=== PATIENT | female | born 2000 | race Caucasian/White ===

== ENCOUNTER 2021-05-04 08:23 | Outpatient (REF) | payer OTHER, SELFPAY ==
[2021-05-04 10:21] LABS: MANUAL DIFF FLAG NO
[2021-05-04 10:28] LABS: Basophils Percent Auto 0.4 % (0-2); Eosinophils Absolute Auto 0.3 X10*3/uL (0.0-0.4); Eosinophils Percent Auto 5.1 % (0-4); Hematocrit 41.8 % (37.0-47.0); Hemoglobin 14.2 g/dl (12.0-16.0); Imm Gran Abs Auto 0.04 X10*3/uL (0.00-0.03); Imm Gran Pct Auto 0.6 % (0.0-0.4); Lymphocytes Absolute Auto 1.9 X10*3/uL (1.2-4.9); Lymphocytes Percent Auto 27.6 % (20-40); Mean Corpuscular Hemoglobin 29.8 pg (27.0-33.0); Mean Corpuscular Volume 87.8 fL (80.0-98.0); Mean Platelet Volume 12.2 fL (9.4-12.3); Monocytes Absolute Auto 0.4 X10*3/uL (0.1-1.2); Monocytes Percent Auto 6.1 % (2-11); Neutrophils Absolute Auto 4.1 x10*3/uL (2.0-8.3); Neutrophils Percent Auto 60.2 % (45-73); Platelet Count 214 X10*3/uL (160-400); Red Blood Count 4.76 X10*6/uL (4.20-5.50); White Blood Count 6.7 X10*3/uL (4.8-10.8)
[2021-05-04 10:59] LABS: Alanine Aminotransferase 18 U/L (0-31); Anion Gap 9 (12-20); Aspartate Amino Transferase 14 U/L (5-31); Blood Urea Nitrogen 11 mg/dL (9-16); Calcium 9.6 mg/dL (8.4-10.2); Carbon Dioxide 27 mmol/L (22-29); Chloride 107 mmol/L (96-108); Cholesterol 177 mg/dL; Estimated Glomerular Filt Rate > 60; Glucose Fasting 92 mg/dL (60-99); HDL Cholesterol 42 mg/dL; LDL Cholesterol Calculated 125 mg/dl; Potassium 4.7 mmol/L (3.3-5.1); Sodium 138 mmol/L (135-145); Triglycerides 54 mg/dL
[2021-05-04 11:23] LABS: TSH reflex Free T4 1.62 uIU/mL (0.32-4.0)
== END 2021-05-04 08:24 | disposition home or self-care (01) ==
LOC: HO.10HDL 08:23
PROVIDERS: Visit Provider Internal Medicine
DX: Z00.00 Encounter for general adult medical examination without abnormal findings (principal); F32.A Depression, unspecified; F41.9 Anxiety disorder, unspecified; R00.2 Palpitations
CPT/HCPCS: 36415; 80048; 80061; 82306; 84443; 84450; 84460; 85025

== ENCOUNTER → 2021-07-18 14:15 | Outpatient (BNVA) | payer OTHER, SELFPAY | PROVIDERS: PCP Nurse Practitioner Family; Referring Provider Nurse Practitioner Family; Visit Provider Nurse Practitioner Family | DX: R06.02 Shortness of breath (principal); R53.83 Other fatigue | CPT/HCPCS: 93005 ==

== ENCOUNTER 2021-07-20 16:48 | Outpatient (REF) | payer OTHER, SELFPAY ==
[2021-07-20 17:26] LABS: MANUAL DIFF FLAG NO
[2021-07-20 17:47] LABS: Basophils Absolute Auto 0.1 X10*3/uL (0.0-0.2); Basophils Percent Auto 0.9 % (0-2); Eosinophils Absolute Auto 0.6 X10*3/uL (0.0-0.4); Hematocrit 41.7 % (37.0-47.0); Imm Gran Abs Auto 0.03 X10*3/uL (0.00-0.03); Imm Gran Pct Auto 0.4 % (0.0-0.4); Lymphocytes Absolute Auto 2.4 X10*3/uL (1.2-4.9); Lymphocytes Percent Auto 30.5 % (20-40); Mean Corpuscular HGB Conc 33.6 g/dl (31.0-35.0); Mean Corpuscular Hemoglobin 29.9 pg (27.0-33.0); Mean Corpuscular Volume 89.1 fL (80.0-98.0); Mean Platelet Volume 11.1 fL (9.4-12.3); Monocytes Absolute Auto 0.5 X10*3/uL (0.1-1.2); Monocytes Percent Auto 6.5 % (2-11); Neutrophils Absolute Auto 4.4 x10*3/uL (2.0-8.3); Neutrophils Percent Auto 54.7 % (45-73); Platelet Count 246 X10*3/uL (160-400); Red Blood Count 4.68 X10*6/uL (4.20-5.50); Red Cell Distribution Width 12.1 % (11.0-16.0)
[2021-07-20 18:08] LABS: Alanine Aminotransferase 33 U/L (0-31); Albumin Level 4.5 g/dL (3.5-5.0); Alkaline Phosphatase 59 U/L (39-117); Anion Gap 14 (12-20); Aspartate Amino Transferase 21 U/L (5-31); Bilirubin Total 0.6 mg/dL (0.0-1.0); Blood Urea Nitrogen 13 mg/dL (9-16); Calcium 9.7 mg/dL (8.4-10.2); Carbon Dioxide 26 mmol/L (22-29); Chloride 102 mmol/L (96-108); Estimated Glomerular Filt Rate > 60; Glucose Random 83 mg/dL (60-115); Potassium 3.8 mmol/L (3.3-5.1); Sodium 138 mmol/L (135-145); Total Protein 7.3 g/dL (6.5-8.0)
[2021-07-20 18:25] LABS: Erythrocyte Sedimentation Rate 7 MM/HR (0-20)
[2021-07-21 09:20] LABS: Thyroglobulin Antibodies <1 IU/mL (< or = 1); Thyroid Peroxidase Antibodies <1 IU/mL (<9)
[2021-07-21 13:32] LABS: Complement C3 103 mg/dL (83-193)
[2021-07-21 19:21] LABS: Immunoglobulin E 135 kU/L (<OR=114)
[2021-07-24 11:57] LABS: IgA 212 mg/dL (47-310); IgG 950 mg/dL (600-1640); IgM 79 mg/dL (50-300)
[2021-07-26 23:41] LABS: Histamine Release <16 % (<16); TSH 2.19 mIU/L (0.40-4.50); Thyroglobulin Abs <1 IU/mL (< OR = 1)
== END 2021-07-20 16:49 | disposition home or self-care (01) ==
LOC: HO.LAB 16:48
PROVIDERS: PCP Nurse Practitioner Family; Visit Provider Allergy & Immunology
DX: L50.9 Urticaria, unspecified (principal)
CPT/HCPCS: 36415; 80053; 82784; 82785; 83520; 84443; 85025; 85652; 86160; 86334; 86343; 86376; 86800

== ENCOUNTER → 2021-07-27 08:03 | Outpatient (REF) | payer OTHER, SELFPAY ==
--- NOTE | 2021-07-27 08:07 | CA_ITS ---
Acquisition Time: 2021-07-27 08:20:29 Total Exercise Time: 00:07:45 Test Indications: CP, SOB Medications: SEE CHART Protocol: GERARD Max HR: 181 BPM 90% of Pred: 200 BPM Max BP: 152/050 mmHG Max Work Load: 9.7 METS Exercise stress test with exercise 7 min 45 sec of Gerard protocol, with report of mild shortness of breath, no chest discomfort, without arrythmia, with normotensive response to exercise, without EKG changes meeting criteria for ischemia. Her reports of sob started in stage 1 and degree of sob did not increase throughout remainder of exercise. Test reviewed with Dr Huizar. Referred By: Janell Benjamin Overread By: JANELL BENJAMIN
== END ==
LOC: HO.CARD 08:03
PROVIDERS: PCP Internal Medicine; Visit Provider Nurse Practitioner Family
DX: R06.02 Shortness of breath (principal)
CPT/HCPCS: 93017

== ENCOUNTER 2021-08-25 07:42 | Outpatient (REF) | payer OTHER, SELFPAY ==
--- NOTE | 2021-08-25 13:18 | PFT_ITS ---
INDICATION: Shortness of breath. SPIROMETRY: FEV1 to FVC of 92% with an FEV1 of 3.71 L, which is 103% predicted and an FVC of 4.05 L, which is 97% predicted. No significant response to bronchodilators noted. Maximum voluntary ventilation 85% predicted. LUNG VOLUMES: Total lung capacity 94% predicted with an expiratory reserve volume of 91% predicted. DIFFUSION CAPACITY: DLCO is 91% predicted. Flow volume loop appears to have good lung mechanics during both the expiratory and the expiratory phase without any evidence of any dynamic obstruction. A little bit of fasciculation during the inspiratory phase bringing up the question of vocal cord dysfunction. INTERPRETATION: No obstructive nor restrictive ventilatory defects have been identified. No significant response to bronchodilators noted. Normal lung volumes and normal diffusion capacity. If asthma is in the differential, methacholine challenge may be helpful in assessing for hyper-reactive airways. Otherwise, clinical diagnosis is warranted. MD HOOD Marrero/ORTIZ / [id number]
== END 2021-08-25 07:43 | disposition home or self-care (01) ==
LOC: HO.RESP 07:42
PROVIDERS: PCP Nurse Practitioner Family; Visit Provider Nurse Practitioner Family
DX: J30.2 Other seasonal allergic rhinitis (principal); R06.02 Shortness of breath; R53.83 Other fatigue
CPT/HCPCS: 94060; 94727; 94729

== ENCOUNTER 2021-12-02 22:42 | Emergency (ER) | payer OTHER, SELFPAY ==
[2021-12-02 22:45] VITALS: BP 130/83; PULSE 87; RESP 14; TEMP 36.8; O2SAT 98
[2021-12-03 00:09] LABS: Imm Gran Abs Auto 0.06 X10*3/uL (0.00-0.03); Imm Gran Pct Auto 0.6 % (0.0-0.4); MANUAL DIFF FLAG SCAN; Monocytes Absolute Auto 0.6 X10*3/uL (0.1-1.2); PLT CLUMP 1; SCAN SMEAR FLAG 1
[2021-12-03 00:11] LABS: Basophils Absolute Auto 0.1 X10*3/uL (0.0-0.2); Basophils Percent Auto 0.5 % (0-2); Eosinophils Absolute Auto 0.9 X10*3/uL (0.0-0.4); Eosinophils Percent Auto 8.6 % (0-4); Hematocrit 43.2 % (37.0-47.0); Hemoglobin 14.8 g/dl (12.0-16.0); Lymphocytes Absolute Auto 2.3 X10*3/uL (1.2-4.9); Lymphocytes Percent Auto 23.1 % (20-40); Mean Corpuscular HGB Conc 34.3 g/dl (31.0-35.0); Mean Corpuscular Hemoglobin 29.8 pg (27.0-33.0); Mean Corpuscular Volume 87.1 fL (80.0-98.0); Mean Platelet Volume 11.3 fL (9.4-12.3); Monocytes Percent Auto 6.3 % (2-11); Neutrophils Percent Auto 60.9 % (45-73); Red Blood Count 4.96 X10*6/uL (4.20-5.50); Red Cell Distribution Width 11.9 % (11.0-16.0); White Blood Count 9.9 X10*3/uL (4.8-10.8)
[2021-12-03 00:24] LABS: Alanine Aminotransferase 32 U/L (0-31); Lipase 13 U/L (8-78)
[2021-12-03 00:26] LABS: Albumin Level 4.5 g/dL (3.5-5.0); Alkaline Phosphatase 63 U/L (39-117); Anion Gap 14 (12-20); Aspartate Amino Transferase 27 U/L (5-31); Bilirubin Direct 0.2 mg/dL (0.0-0.5); Bilirubin Total 0.5 mg/dL (0.0-1.0); Blood Urea Nitrogen 14 mg/dL (9-16); Calcium 9.6 mg/dL (8.4-10.2); Carbon Dioxide 27 mmol/L (22-29); Chloride 104 mmol/L (96-108); Creatinine Clr Calc Pharmacy 109.6; Estimated Glomerular Filt Rate > 60; Glucose Random 93 mg/dL (60-115); Potassium 4.1 mmol/L (3.3-5.1); Sodium 141 mmol/L (135-145); Total Protein 7.4 g/dL (6.5-8.0)
[2021-12-03 00:29] LABS: Platelet Count 197 X10*3/uL (160-400)
[2021-12-03 00:30] LABS: SLIDE REVIEW VERIFIED
== END 2021-12-03 03:03 | disposition left against medical advice (07) ==
PROVIDERS: Emergency Medicine Emergency Medical Services; Emergency Provider Emergency Medicine
DX: R10.9 Unspecified abdominal pain (principal)
CPT/HCPCS: 36415; 80053; 82248; 83690; 85025; 99281; 99283

== ENCOUNTER 2021-12-20 09:18 | Outpatient (REF) | payer OTHER, SELFPAY ==
[2021-12-22 13:40] LABS: H Pylori Breath Test Negative (Negative)
== END 2021-12-20 09:19 | disposition home or self-care (01) ==
LOC: HO.LNP 09:18
PROVIDERS: PCP Internal Medicine; Visit Provider Physician Assistant
DX: R10.9 Unspecified abdominal pain (principal); K21.9 Gastro-esophageal reflux disease without esophagitis; A04.8 Other specified bacterial intestinal infections; Z79.899 Other long term (current) drug therapy
CPT/HCPCS: 83013; 99202; 99212

== ENCOUNTER 2022-05-11 15:22 | Outpatient (REF) | payer OTHER, SELFPAY ==
--- NOTE | ~2022-05-11 | US_ITS ---
EXAMINATION: US THYROID CLINICAL INFORMATION: Nontoxic goiter, unspecified. COMPARISON: None TECHNIQUE: Linear transducer grayscale and color Doppler examination with attention to the region of the thyroid. FINDINGS: SIZE: Measurements of the thyroid lobes and nodules are given in sagittal, anteroposterior and transverse dimensions respectively. Right Thyroid Lobe: 4.72 x 1.19 x 1.10 cm, volume 3.23 mL. Parenchyma: The gland echotexture is homogeneous. Thyroid vascularity is normal. Left Thyroid Lobe: 4.92 x 1.08 x 1.93 cm, volume 5.38 mL. Parenchyma: The gland echotexture is homogeneous. Thyroid vascularity is normal. Isthmus: 0.20 cm in maximum AP dimension. Estimated total number of nodules greater than or equal to 1 cm: 0. Estate Planning Attorney nodules are described as follows: 1. Location: Right mid. Size: 0.35 x 0.30 x 0.30 cm, volume 0.02 mL. Nodule characteristics: Composition: Solid (2). Echogenicity: Hypoechoic (2). Shape: Not taller than wide (0). Margins: Smooth (0). Echogenic Foci: None (0). ACR TI-RADS total points: 4 ACR TI-RADS category: 4 NODES: No lymphadenopathy is seen in the tissue surrounding the thyroid gland. US/US thyroid IMPRESSION: 3 mm hypoechoic solid nodule in the right mid thyroid. Per TI-RADS criteria, no imaging follow-up recommended. ACR TI-RADS RECOMMENDATION REFERENCE: * TR4 (4-6 points): FNA if more than or equal to 1.5 cm in maximum dimension, followup ultrasound in 1, 2, 3 and 5 years if 1 to 1.4 cm in maximum dimension. * TR3, TR4 or TR5 nodules that are below the size threshold for followup receive no follow up.
== END 2022-05-11 15:23 | disposition home or self-care (01) ==
LOC: HO.HMGCX 15:22
PROVIDERS: PCP Internal Medicine; Visit Provider Internal Medicine
DX: E04.9 Nontoxic goiter, unspecified (principal)
CPT/HCPCS: 76536

== ENCOUNTER → 2022-08-07 08:22 | Outpatient (BNVA) | payer OTHER, SELFPAY | PROVIDERS: PCP Internal Medicine; Visit Provider Physician Assistant | DX: R10.9 Unspecified abdominal pain (principal); R19.8 Other specified symptoms and signs involving the digestive system and abdomen; G89.29 Other chronic pain | CPT/HCPCS: 99212 ==

== ENCOUNTER 2022-11-22 11:07 | Outpatient (AMB) | payer OTHER, SELFPAY ==
--- NOTE | 2022-11-22 11:08 | MHC.OFFWIV ---
Intake Vital Signs 11/22/22 11:10 Height 5 ft 7 in BP 102/60 Blood Pressure Location Lt brachial Position Sitting Pulse 72 Pulse Source Pulse Oximeter Temp 95.6 F L Temp Source Temporal Artery Scan Pulse Oximetry (%) 99 Oxygen Delivery Method Room Air Intake Visit Reasons: EP spot on throat, doesn't hurt(lobby) Intake Note: Pt is here c/o having something on her throat. Pt states she feels like something is stuck in her throat. Pt denies sore throat, cough, fevers. Patient Tobacco Use Status: Never used Tobacco Allergies cetirizine Allergy (Severe, Verified 11/22/22 11:09) Hives fexofenadine [From Amber] Allergy (Severe, Verified 11/22/22 11:09) Hives prednisone Allergy (Severe, Verified 11/22/22 11:09) Hives amoxicillin Allergy (Unknown, Verified 11/22/22 11:09) rash hydroxyzine Allergy (Verified 11/22/22 11:09) hives loratadine Allergy (Verified 11/22/22 11:09) hives Do you need a note to return to daycare/school/sports/work: No HPI HPI Comments History of Present Illness Details 22-year-old female no relevant history the presents for spot her throat. Patient has is she noted a white spot the left side of her throat. She denies any pain but notices sensation when swallowing denies any fevers chills other systemic signs. [facility] Medical History Abdominal pain Chronic urticaria Encounter to establish care Fatigue Paroxysmal sinus tachycardia Seasonal allergic rhinitis Shortness of breath Thyroid enlarged Vitamin D deficiency Surgical History History of wisdom tooth extraction Family History Father Drug addiction Mental illness in member of household IHSS (idiopathic hypertrophic subaortic stenosis) Mother Fibromyalgia Mental health disorder Maternal Grandfather Diabetes mellitus Colon cancer Maternal Grandmother Kidney disease Substance use disorder Cardiac arrest Paternal Grandfather IHSS (idiopathic hypertrophic subaortic stenosis) Sister No problems noted. Sister No problems noted. Social History Household Members Other:: Single Housing: House Alcohol intake: never Patient Tobacco Use Status: Never used Tobacco e-Cigarette/Vaping Use: Never Used service: No Current occupational status: employed Current occupation: [employer] also Cognitive needs: No Hearing needs: No Vision needs: Yes (Glasses) Review of Systems Const All systems reviewed & are unremarkable except as noted in HPI and below Denies fever(s) and Denies weakness Eyes Reports no additional complaints ENT Details: White spot in the back of the throat. Card Reports no additional complaints, Denies chest pain, Denies leg edema and Denies dyspnea Resp Denies cough and Denies dyspnea GI Denies abdominal pain, Denies nausea and Denies vomiting Denies urinary frequency and Denies dysuria Musc Reports no additional complaints Neuro Denies weakness Psych Reports no additional complaints Endo Reports no additional complaints Physical Exam Vital Signs: Last Vital Signs Temp 95.6 F L 11/22/22 11:10 Pulse 72 11/22/22 11:10 BP 102/60 11/22/22 11:10 Pulse Ox 99 11/22/22 11:10 Oxygen Delivery Method Room Air 11/22/22 11:10 Const General: cooperative, healthy appearing, comfortable, no acute distress, alert and awake HEENT Other: White spot on the left tonsil. No erythema in the posterior pharynx. No trismus no uvular deviation or muffled voice. Assessment & Plan Assessment & Plan (1) Tonsillith: Code(s): J35.8 - Other chronic diseases of tonsils and adenoids Plan 22-year-old female no relevant history the presents for spot her throat VSS. On exam patient's insulin oriented no acute distress. Exam is notable for white round structure lodged within the left tonsil. No erythema in the posterior pharynx no trismus uvula deviation or muffled voice. Patient's sinus symptoms consistent with a tonsillith. Advised patient she may utilize lozenges saltwater rinses or try manually expressing the stone. If she develops any signs symptoms of infection such as fever she should represent for further evaluation. Discharge instructions, follow up and treatment are discussed with patient in my usual fashion. Alternatives in treatment are also discussed. The patient will return for worsening symptoms or as needed. Advised that any labs/imaging ordered will be followed up on and contact made if further treatment needed. Counseled that patient's condition may require further evaluation and/or treatment. Symptoms of concern for worsening disorder discussed in detail in my customary manner. Patient does verbalize understanding of the plan, there are no apparent barriers to communication. The patient is given the opportunity to ask questions and have them answered to his/her satisfaction Patient Instructions: Your seen and evaluated in the walk-in clinic for your in evaluation. And your medical evaluation revealed a tonsillith or tonsil stone in your left tonsil. This might cause pain in the future may utilize saltwater rinses or lozenges or try manually expressing the stone. Developing new worsening symptoms such as fever sore throat or difficulty swelling or any concerns with this please re-presented for further evaluation. Coding Level of Care Code Est Pt Level 3 (56417) Diagnoses Tonsillith J35.8
[2022-11-22 11:10] VITALS: BP 102/60; PULSE 72; TEMP 35.3; O2SAT 99
== END 2022-11-22 11:26 | disposition home or self-care (01) ==
PROVIDERS: PCP Internal Medicine; Visit Provider Physician Assistant
DX: J35.8 Other chronic diseases of tonsils and adenoids (principal)
CPT/HCPCS: 99213

== ENCOUNTER 2022-12-04 08:19 | Outpatient (AMB) | payer OTHER, SELFPAY ==
--- NOTE | 2022-12-04 09:31 | MHC.OFFWIV ---
Intake Vital Signs 12/04/22 09:35 Height 5 ft 7 in BP 120/74 Blood Pressure Location Lt brachial Position Sitting Pulse 70 Pulse Source Pulse Oximeter Temp 97.2 F Temp Source Temporal Artery Scan Pulse Oximetry (%) 98 Oxygen Delivery Method Room Air Intake Visit Reasons: EP Cough, Intake Note: Pt is here c/o still having a bad cough since last week. Pt states she was seen in the walk in last week and had tonsil stones. Patient Tobacco Use Status: Never used Tobacco Allergies cetirizine Allergy (Severe, Verified 12/04/22 09:52) Hives fexofenadine [From Amber] Allergy (Severe, Verified 12/04/22 09:52) Hives prednisone Allergy (Severe, Verified 12/04/22 09:52) Hives amoxicillin Allergy (Unknown, Verified 12/04/22 09:52) rash hydroxyzine Allergy (Verified 12/04/22 09:52) hives loratadine Allergy (Verified 12/04/22 09:52) hives Medication List - Last Reconciled 12/04/22 by Zane Mendoza MD diclofenac sodium 1% (Arthritis Pain (diclofenac)) 2 grams topical QID PRN epinephrine (EpiPen) 0.3 mg (0.3 mL) IM Q4H PRN 1 day levonorgestrel (Liletta) intrauterine Do you need a note to return to daycare/school/sports/work: Yes HPI EP Cough, HPI Details 22-year-old female presents to the office for a sick visit. Patient is complaining of an irritating cough the past few days. Green to yellow productive sputum. Coughing episodes are paroxysmal and occasionally cause nausea. No fevers or chills. [facility] Medical History Abdominal pain Chronic urticaria Encounter to establish care Fatigue Paroxysmal sinus tachycardia Seasonal allergic rhinitis Shortness of breath Thyroid enlarged Vitamin D deficiency Surgical History History of wisdom tooth extraction Family History Father Drug addiction Mental illness in member of household IHSS (idiopathic hypertrophic subaortic stenosis) Mother Fibromyalgia Mental health disorder Maternal Grandfather Diabetes mellitus Colon cancer Maternal Grandmother Kidney disease Substance use disorder Cardiac arrest Paternal Grandfather IHSS (idiopathic hypertrophic subaortic stenosis) Sister No problems noted. Sister No problems noted. Social History Household Members Other:: Single Housing: House Alcohol intake: never Patient Tobacco Use Status: Never used Tobacco e-Cigarette/Vaping Use: Never Used service: No Current occupational status: employed Current occupation: [employer] also Cognitive needs: No Hearing needs: No Vision needs: Yes (Glasses) Physical Exam Vital Signs: Last Vital Signs Temp 97.2 F 12/04/22 09:35 Pulse 70 12/04/22 09:35 BP 120/74 12/04/22 09:35 Pulse Ox 98 12/04/22 09:35 Oxygen Delivery Method Room Air 12/04/22 09:35 Const General: cooperative and healthy appearing Nutritional Appearance: well nourished Orientation/consciousness: patient oriented x3 Limitations: no limitations HEENT Head: Yes normal to inspection Eyes General: appearance normal, both eyes and all related structures Neck Neck: Yes normal visual inspection Chest Chest palpation & inspection: normal palpation of entire chest wall Resp Effort & Inspection: normal respiratory effort Neuro General: patient oriented x3 Assessment & Plan Assessment & Plan (1) Upper respiratory tract infection: Code(s): J06.9 - Acute upper respiratory infection, unspecified Plan: Antibiotics ordered. Increase fluid intake. Tylenol for aches and pains. If symptoms worsen, follow-up here for a recheck. Coding Level of Care Code Est Pt Level 3 (82875) Diagnoses Upper respiratory tract infection J06.9
[2022-12-04 09:35] VITALS: BP 120/74; PULSE 70; TEMP 36.2; O2SAT 98
== END 2022-12-04 09:49 | disposition home or self-care (01) ==
PROVIDERS: PCP Internal Medicine; Visit Provider Internal Medicine
DX: J06.9 Acute upper respiratory infection, unspecified (principal)
CPT/HCPCS: 99213

== ENCOUNTER 2023-09-14 09:02 | Outpatient (REF) | payer OTHER, SELFPAY ==
[2023-09-14 11:25] LABS: Basophils Absolute Auto 0.1 X10*3/uL (0.0-0.2); Basophils Percent Auto 0.8 % (0-2); Eosinophils Absolute Auto 0.3 X10*3/uL (0.0-0.4); Eosinophils Percent Auto 4.2 % (0-4); Hematocrit 41.5 % (37.0-47.0); Hemoglobin 14.1 g/dl (12.0-16.0); Imm Gran Abs Auto 0.01 X10*3/uL (0.00-0.03); Imm Gran Pct Auto 0.2 % (0.0-0.4); Lymphocytes Absolute Auto 1.9 X10*3/uL (1.2-4.9); Lymphocytes Percent Auto 30.1 % (20-40); MANUAL DIFF FLAG NO; Mean Corpuscular Hemoglobin 30.3 pg (27.0-33.0); Mean Corpuscular Volume 89.2 fL (80.0-98.0); Mean Platelet Volume 12.2 fL (9.4-12.3); Monocytes Absolute Auto 0.4 X10*3/uL (0.1-1.2); Monocytes Percent Auto 6.3 % (2-11); Neutrophils Absolute Auto 3.7 x10*3/uL (2.0-8.3); Neutrophils Percent Auto 58.4 % (45-73); Platelet Count 211 X10*3/uL (160-400); Red Blood Count 4.65 X10*6/uL (4.20-5.50); Red Cell Distribution Width 12.4 % (11.0-16.0); White Blood Count 6.4 X10*3/uL (4.8-10.8)
[2023-09-14 12:05] LABS: Alanine Aminotransferase 16 U/L (0-31); Albumin Level 4.2 g/dL (3.5-5.0); Alkaline Phosphatase 57 U/L (39-117); Anion Gap 15 (12-20); Aspartate Amino Transferase 16 U/L (5-31); Bilirubin Total 0.4 mg/dL (0.0-1.0); Blood Urea Nitrogen 10 mg/dL (9-16); Calcium 9.2 mg/dL (8.4-10.2); Carbon Dioxide 23 mmol/L (22-29); Chloride 108 mmol/L (96-108); Cholesterol 173 mg/dL (<200); Estimated Glomerular Filt Rate > 60; Glucose Random 92 mg/dL (60-115); HDL Cholesterol 45 mg/dL (>40); LDL Cholesterol Calculated 121 mg/dL (<100); Potassium 4.4 mmol/L (3.3-5.1); Sodium 142 mmol/L (135-145); Total Protein 6.9 g/dL (6.5-8.0); Triglycerides 39 mg/dL (<150)
[2023-09-14 12:25] LABS: Thyroid Stimulating Hormone 0.76 uIU/mL (0.32-4.0); Vitamin D 25-OH Total 30.5 ng/mL (>30)
[2023-09-14 12:35] LABS: Folate 11.4 ng/mL (> or = 4.0); Vitamin B12 357 pg/mL (200-900)
== END 2023-09-14 09:03 | disposition home or self-care (01) ==
LOC: HO.HMGCLDS 09:02
PROVIDERS: PCP Internal Medicine; Visit Provider Internal Medicine
DX: K21.9 Gastro-esophageal reflux disease without esophagitis (principal); E78.00 Pure hypercholesterolemia, unspecified
CPT/HCPCS: 36415; 80053; 80061; 82306; 82607; 82746; 84439; 84443; 85025

== ENCOUNTER 2023-09-16 11:23 | Outpatient (AMB) | payer OTHER, SELFPAY ==
[2023-09-16 11:24] VITALS: BP 126/78; PULSE 74; O2SAT 100; BMI 32.4
--- NOTE | 2023-09-16 11:24 | A.OFFPC_ITS ---
Vital Signs 09/16/23 11:24 Height 5 ft 7 in Weight 93.908 kg BMI 32.4 BP 126/78 Blood Pressure Location Lt brachial Position Sitting Pulse 74 Pulse Source Pulse Oximeter Pulse Oximetry (%) 100 Oxygen Delivery Method Room Air Intake Visit Reasons: Annual Intake Note: Patient is here today for a physical. Final Cigar And Box Examiner Required: No Allergies cetirizine Allergy (Severe, Verified 09/16/23 11:29) Hives fexofenadine [From Amber] Allergy (Severe, Verified 09/16/23 11:29) Hives prednisone Allergy (Severe, Verified 09/16/23 11:29) Hives amoxicillin Allergy (Unknown, Verified 09/16/23 11:29) rash hydroxyzine Allergy (Verified 09/16/23 11:29) hives loratadine Allergy (Verified 09/16/23 11:29) hives Medication List - Last Reconciled 09/16/23 by Juan Jose Young MD epinephrine (EpiPen) 0.3 mg (0.3 mL) IM Q4H PRN 1 day levonorgestrel (Liletta) intrauterine Tobacco use date assessed: 09/16/23 Dental Screening Dental Screen Date: 09/16/23 Did you have a dental visit in the last 12 months?: Yes Did you have a dental problem in the last 6 months where you did not have access to dental care?: No Was dental information given to patient?: Patient has dentist HPI Annual HPI Details 22-year-old obese female with a history of thyroid nodule, GERD and chronic urticaria coming in for physical exam. Last seen in April 2022. Review of the notes has seen gastroenterology for abdominal pain patient was advised EGD and colonoscopy. But this was not seen in the record. [facility] Medical History Abdominal pain Chronic urticaria Encounter to establish care Fatigue Paroxysmal sinus tachycardia Seasonal allergic rhinitis Shortness of breath Thyroid enlarged Vitamin D deficiency Surgical History History of wisdom tooth extraction Family History Father Drug addiction Mental illness in member of household IHSS (idiopathic hypertrophic subaortic stenosis) Mother Fibromyalgia Mental health disorder Maternal Grandfather Diabetes mellitus Colon cancer Maternal Grandmother Kidney disease Substance use disorder Cardiac arrest Paternal Grandfather IHSS (idiopathic hypertrophic subaortic stenosis) Sister No problems noted. Sister No problems noted. Social History (Updated 09/16/23 @ 11:49 by Juan Jose Young MD) Household Members Other:: Single Housing: House Alcohol intake: current Comment: 2x a month 1-2 glasses Patient Tobacco Use Status: Never used Tobacco e-Cigarette/Vaping Use: Never Used service: No Current occupational status: employed Current occupation: [employer] also Cognitive needs: No Hearing needs: No Vision needs: Yes (Glasses) Questionnaire PHQ-9 Over the last 2 weeks, how often have you been bothered by any of the following problems? 1. Little interest or pleasure in doing things: not at all 2. Feeling down, depressed, or hopeless: not at all 3. Trouble falling or staying asleep, or sleeping too much: not at all 4. Feeling tired or having little energy: not at all 5. Poor appetite or overeating: not at all 6. Feeling bad about yourself - or that you are a failure or have let yourself or your family down: not at all 7. Trouble concentrating on things, such as reading the newspaper or watching television: not at all 8. Moving or speaking so slowly that other people could have noticed. Or the opposite - being so fidgety or restless that you have been moving around a lot more than usual: not at all 9. Thoughts that you would be better off or of hurting yourself in some way: not at all Total score: 0 Depression Screening Interpretation: Negative Depression Screening Done: Yes Source: Developed by Drs. Huang Velasco, Milly Chisholm, Seth Watson and colleagues, with an educational mary from [employer]. Thrive Questionnaire Date Thrive assessed: 09/16/23 I am a: Patient What is your living situation today?: I have a steady place to live Within the past 12 months, did the food you bought not last and you didn't have the money to get more?: Never true Within the past 12 months, did you worry whether your food would run out before you got money to buy more?: Never true Currently or been in a relationship where the following occur: no concerns reported THRIVE Score: 0 AUDIT C Alcohol Use Questionnaire (AUDIT-C) 1. How often do you have a drink containing alcohol?: Never 3. How often do you have six or more drinks on one occasion?: Never Total Score: 0 CHANELLE-7 AMB Questionnaire CHANELLE-7 Date CHANELLE - 7 assessed: 09/16/23 Feeling nervous, anxious, or on edge: 0 = Not at all Not being able to stop or control worryin = Not at all Worrying too much about different things: 0 = Not at all Trouble relaxin = Not at all Being so restless that it is hard to sit still: 0 = Not at all Becoming easily annoyed or irritable: 0 = Not at all Feeling afraid as if something awful might happen: 0 = Not at all Total CHANELLE-7 score (0-4 normal; 5-9 mild; 10-14 moderate; 15-21 severe): 0 Source: Developed by Drs. Huang Velasco, Milly Chisholm, Seth Watson and colleagues, with an educational mary from [employer]. CHANELLE-7 Assessment Billing CHANELLE-7 Assessment Tool: CHANELLE-7 Assessment 11625 Review of Systems Const Denies poor appetite and Denies weakness Eyes Denies no additional complaints ENT Reports Normal hearing present, Denies dizziness, Denies nasal congestion, Denies tinnitus and Denies sore throat Card Denies chest pain, Denies syncope, Denies rapid heart rate and Denies dyspnea Resp Denies cough and Denies dyspnea GI Denies change in stool character, Reports constipation, Denies diarrhea, Denies nausea and Denies vomiting Denies urinary frequency, Denies difficulty voiding and Denies dysuria Neuro Reports Normal hearing present, Denies confusion, Denies dizziness, Denies syncope and Denies weakness Psych Denies confusion Physical exam (Primary Care) Vital Signs: Last Vital Signs Pulse 74 09/16/23 11:24 BP 126/78 09/16/23 11:24 Pulse Ox 100 09/16/23 11:24 Oxygen Delivery Method Room Air 09/16/23 11:24 BMI result Body Mass Index 32.4 Tobacco/Smoking Status: Tobacco use Status Tobacco use date assessed 09/16/23 09/16/23 11:27 Patient Tobacco Use Status Never used Tobacco 09/16/23 11:49 e-Cigarette/Vaping Use Never Used 09/16/23 11:49 PHQ-9: PHQ-9 Score PHQ-9: Total score 0 09/16/23 11:43 Depression Screening Interpretation: Negative Thrive Assessment: Date of Thrive Assessment Date Thrive assessed 09/16/23 09/16/23 11:27 Currently or been in a relationship where the following occur: no concerns reported Const General: No confusion Orientation/consciousness: No confusion HENMT Head: Yes normocephalic Ears: external ears normal and TM's normal bilaterally Face and sinus: Yes normal facial exam Mouth: moist mucous membranes Throat: Yes tonsils normal Eyes Conjunctivae: conjunctivae normal Pupils: Equal, round and reactive pupils present and Pupil accommodation reflex normal Direct Ophthalmoscopy: normal light reflex Neck Neck: No lymphadenopathy Thyroid: Thyroid normal Chest Chest palpation & inspection: normal inspection of the chest Resp Effort & Inspection: normal respiratory effort and no audible wheezes Auscultation: clear to auscultation bilaterally, no crackles, no wheezes and lung sounds not diminished Cardio Rate: regular rate Rhythm: regular rhythm Peripheral pulses: radial pulses present and dorsalis pedis present GI Palpation (GI): no masses Auscultation: normal bowel sounds and normoactive bowel sounds Rectal Exam - Female: deferred Skin General skin exam: no rashes or lesions noted Rashes: no rashes Neuro General: No confusion Cranial nerves: Yes Equal, round and reactive pupils present and Yes Normal hearing present Cognition (Neuro): normal cognition Gait exam (Neuro): Normal gait present Motor exam (neuro): 5/5 motor strength present throughout Deep tendon reflexes (DTR's): Right brachioradialis reflex intensity grade: 2+, Left brachioradialis reflex intensity grade: 2+, Right patellar reflex intensity grade: 2+ and Left patellar reflex intensity grade: 2+ Extrem General: No edema Immunizations Boostrix Tdap 2.5 Lf unit-8 mcg-5 Lf/0.5 mL intramuscular syringe Performing Provider: Juan Jose Young MD Performing Location: [facility] [place] [facility] Administered by: Eliz Guzman CMA on 09/16/23 12:05 Dose Route Admin Location Dispensed Lot Number Expiration Date NDC Stull Hewer 0.5 mL IM Left Deltoid 0.5 mL [id number] 09/26/25 86875-225-80 [employer] VIS Given Date VIS Provided VIS Publication Date 09/16/23 Single Vaccine 20 Eligibility Eligibility Date Funding Source Not [facility] Eligible 09/16/23 Private Assessment and Plan Assessment & Plan (1) Annual physical exam: Code(s): Z00.00 - Encounter for general adult medical examination without abnormal findings (2) GERD (gastroesophageal reflux disease): Code(s): K21.9 - Gastro-esophageal reflux disease without esophagitis Plan: Avoid the foods that causes that usually spicy foods, tomato products, juices, coffee, soda and foods that your sensitive to. After eating do not lie down, allow 3-4 hours before in lie down. And keep the head of bed above 30 degrees to avoid the acid from going up. (3) Obesity (BMI 30.0-34.9): Code(s): E66.9 - Obesity, unspecified Plan: Diet and exercise Orders: Orders Cortisol Random Today E66.9 - Obesity, unspecified TDaP Immunization Today Z23 - Encounter for immunization Medications: New Boostrix Tdap (diphth,pertus(acell),tetanus) 0.5 mL IM ONCE 0.5 mL 0RF NS Z23 - Encounter for immunization Coding Level of Care Code Est Pt Prev Care 18-39y(50229) Diagnoses Annual physical exam Z00.00 GERD (gastroesophageal reflux disease) K21.9 Obesity (BMI 30.0-34.9) E66.9 Additional Codes CHANELLE-7 Assessment Billing - CHANELLE-7 Assessment Tool: CHANELLE-7 Assessment 56340 ([id number])
== END 2023-09-16 12:15 | disposition home or self-care (01) ==
PROVIDERS: PCP Internal Medicine; Visit Provider Internal Medicine
DX: Z00.00 Encounter for general adult medical examination without abnormal findings (principal); Z68.32 Body mass index [BMI] 32.0-32.9, adult; E66.9 Obesity, unspecified; Z23 Encounter for immunization; K21.9 Gastro-esophageal reflux disease without esophagitis
CPT/HCPCS: 90471; 90715; 99395

== ENCOUNTER 2023-09-16 12:42 | Outpatient (REF) | payer OTHER, SELFPAY ==
[2023-09-16 17:25] LABS: Cortisol Random 6.7 ug/dL
== END 2023-09-16 12:43 | disposition home or self-care (01) ==
LOC: HO.HMGCLDS 12:42
PROVIDERS: PCP Internal Medicine; Visit Provider Internal Medicine
DX: E66.9 Obesity, unspecified (principal)
CPT/HCPCS: 36415; 82533

== ENCOUNTER → 2023-11-21 14:10 | Outpatient (AMB) | payer OTHER, SELFPAY ==
--- NOTE | 2023-11-21 14:17 | AM.OFFWIN_ITS ---
Intake Vital Signs 11/21/23 14:18 Height 5 ft 7 in Weight 208 lb BMI 32.6 BP 128/80 Blood Pressure Location Lt brachial Position Sitting Pulse 93 Pulse Source Pulse Oximeter Temp Source Oral Pulse Oximetry (%) 98 Oxygen Delivery Method Room Air Intake Visit Reasons: est/dizzy and chest pains Intake Note: pt is here c/o dizziness and chest pain. Started yesterday Patient Tobacco Use Status: Never used Tobacco Allergies cetirizine Allergy (Severe, Verified 11/21/23 14:17) Hives fexofenadine [From Amber] Allergy (Severe, Verified 11/21/23 14:17) Hives prednisone Allergy (Severe, Verified 11/21/23 14:17) Hives amoxicillin Allergy (Unknown, Verified 11/21/23 14:17) rash hydroxyzine Allergy (Verified 11/21/23 14:17) hives loratadine Allergy (Verified 11/21/23 14:17) hives Do you need a note to return to daycare/school/sports/work: No HPI HPI Comments History of Present Illness Details Patient is a 23-year-old female complaining of dizziness for the last few days. [place] [facility] [place] [facility] [place] [facility] then [facility] back. She states it was her 1st time flying and she was very anxious about flying. She states she started having episodes of dizziness since the 1st fly that happen with and without movement, she denies any nausea or vomiting. She states she has a long history of anxiety and a history of her heart rate being elevated because of it. She has had a thorough cardiac workup including a 30 day Holter monitor, an echocardiogram and EKGs. She states she does not have any chest pain right now. She denies any leg swelling or leg pain, she denies a personal or family history of blood clots, DVTs or PEs. She states she would like to see a therapist but she does not want to see somebody who is going to try to help her work through all of her issues because she can usually convinced herself that it is in her head, but she would prefer someone who can just listened to her talk and she can ?get all her problems offer test? so she is not sure if regular therapy as for her and she also states her PCP was hesitant to prescribe an SSRI because he did not want her to gain weight because he knows that is a concern of hers. [facility] Medical History Abdominal pain Chronic urticaria Encounter to establish care Fatigue Paroxysmal sinus tachycardia Seasonal allergic rhinitis Shortness of breath Thyroid enlarged Vitamin D deficiency Surgical History History of wisdom tooth extraction Family History Father Drug addiction Mental illness in member of household IHSS (idiopathic hypertrophic subaortic stenosis) Mother Fibromyalgia Mental health disorder Maternal Grandfather Diabetes mellitus Colon cancer Maternal Grandmother Kidney disease Substance use disorder Cardiac arrest Paternal Grandfather IHSS (idiopathic hypertrophic subaortic stenosis) Sister No problems noted. Sister No problems noted. Social History (Updated 09/16/23 @ 11:49 by Juan Jose Young MD) Household Members Other:: Single Housing: House Alcohol intake: current Comment: 2x a month 1-2 glasses Patient Tobacco Use Status: Never used Tobacco e-Cigarette/Vaping Use: Never Used service: No Current occupational status: employed Current occupation: [employer] also Cognitive needs: No Hearing needs: No Vision needs: Yes (Glasses) Review of Systems Const All systems reviewed & are unremarkable except as noted in HPI and below Physical Exam Vital Signs: Last Vital Signs Pulse 93 11/21/23 14:18 BP 128/80 11/21/23 14:18 Pulse Ox 98 11/21/23 14:18 Oxygen Delivery Method Room Air 11/21/23 14:18 BMI result Body Mass Index 32.6 Const Other: Patient is teary at times General: cooperative, healthy appearing, comfortable and well developed Orientation/consciousness: patient oriented x3 Limitations: no limitations HEENT Head: Yes normal to inspection, Yes normocephalic and Yes atraumatic Ears: hearing grossly normal bilaterally, external ears normal and TM's normal bilaterally General nose exam: Normal external nose present Face and sinus: Yes normal facial exam Mouth: Normal oral and palatal mucosa present Throat: Yes tonsils normal, Yes uvula midline and Yes posterior oropharynx abnormal (Erythematous) Eyes General: appearance normal, both eyes and all related structures Neck Neck: Yes normal visual inspection and Yes full ROM Resp Effort & Inspection: normal respiratory effort and able to speak in complete sentences Auscultation: clear to auscultation bilaterally Cardio Rate: regular rate Rhythm: regular rhythm Heart sounds: normal S1 and S2 GI Inspection: Yes normal to inspection Palpation (GI): Soft to palpation and nontender Skin General skin exam: no rashes or lesions noted Neuro General: patient oriented x3 Extrem General: Yes normal to inspection Assessment & Plan Assessment & Plan (1) BPPV (benign paroxysmal positional vertigo): Code(s): H81.10 - Benign paroxysmal vertigo, unspecified ear Qualifiers: Laterality: unspecified laterality Qualified Code(s): H81.10 - Benign paroxysmal vertigo, unspecified ear Plan: Vital signs are stable, EKG is normal sinus rhythm 81 BPM, no acute changes. PERC'd out, no concern for PE. As patient is allergic to prednisone and allergy medications, recommended she take Benadryl around the clock for the next couple of days to try to dry up the fluid in her head which is likely caused the stones in her had to shift. Also told her how to do the Gaviota maneuver and recommended she do this at home with somebody present. We will also send note to PCP about possibly starting her on a SSRI and therapy, I did have Sandy our community health workers sit and talk with the patient to figure out what kind of therapy would be best for her. Plan See above Coding Level of Care Code Est Pt Level 4 (64088) Diagnoses Benign paroxysmal positional vertigo, unspecified laterality H81.10 Laterality: unspecified laterality
[2023-11-21 14:18] VITALS: BP 128/80; PULSE 93; O2SAT 98; BMI 32.6
== END ==
PROVIDERS: PCP Internal Medicine; Visit Provider Physician Assistant
DX: H81.10 Benign paroxysmal vertigo, unspecified ear (principal)
CPT/HCPCS: 99214

== ENCOUNTER 2024-09-22 08:52 | Outpatient (REF) | payer OTHER, SELFPAY ==
--- OUTSIDE RECORDS SUMMARY | 2024-09-22 09:16 | XMS_ITS | Encounter Summary ---
Author Organization [facility] Address [address] [place] [id number] Phone Care Team Providers Care Bottle Blower Name Role Phone Unavailable Primary Care Provider Unavailabl e Encounter Details Date Type Department Care Team (Late st Contact Info) Description 09/16/2009 Documentation [facility] [place] Family Medicine [facility] [place] [address] Family Medicine, Physician [facility] [place] [address] Social History Tobacco Use Types Packs/Day Years Used Date Smoking Tobacco: Never Assessed Comments Unknown Sex and Gender Information Value Date Recorded Sex Assigned at Not on file Legal Sex Female 4:56 PM EDT Gender Identity Not on file Sexual Orientation Not on file documented as of this encounter Plan of Treatment Not on file documented as of this encounter Visit Diagnoses Not on filedocumented in this encounter
[2024-09-22 10:07] LABS: MANUAL DIFF FLAG NO
[2024-09-22 10:14] LABS: Appearance Urine Cloudy; Color Urine Yellow; Glucose Urine UA Negative (Negative); Leukocyte Esterase Urine Moderate (2+) (Negative); Nitrite Urine Positive (Negative); Specific Gravity - Urine 1.015 (1.005-1.025); UMIC TRIGGER UACC YES; Urine Blood Negative (Negative); Urine Ketones Negative (Negative); Urine Protein Negative (Neg-Trace)
[2024-09-22 10:15] LABS: Basophils Absolute Auto 0.1 X10*3/uL (0.0-0.2); Basophils Percent Auto 0.9 % (0-2); Eosinophils Absolute Auto 0.4 X10*3/uL (0.0-0.4); Eosinophils Percent Auto 4.8 % (0-4); Hematocrit 39.6 % (37.0-47.0); Hemoglobin 13.8 g/dl (12.0-16.0); Imm Gran Abs Auto 0.04 X10*3/uL (0.00-0.03); Imm Gran Pct Auto 0.5 % (0.0-0.4); Lymphocytes Absolute Auto 2.1 X10*3/uL (1.2-4.9); Lymphocytes Percent Auto 26.3 % (20-40); Mean Corpuscular HGB Conc 34.8 g/dl (31.0-35.0); Mean Corpuscular Hemoglobin 30.3 pg (27.0-33.0); Mean Corpuscular Volume 86.8 fL (80.0-98.0); Mean Platelet Volume 11.8 fL (9.4-12.3); Monocytes Absolute Auto 0.4 X10*3/uL (0.1-1.2); Monocytes Percent Auto 5.4 % (2-11); Neutrophils Percent Auto 62.1 % (45-73); Platelet Count 199 X10*3/uL (160-400); Red Blood Count 4.56 X10*6/uL (4.20-5.50); Red Cell Distribution Width 12.1 % (11.0-16.0)
[2024-09-22 10:20] LABS: Bacteria Urine 4+ (None Seen); Hyaline Casts Urine 0-2 /LPF (0-2); RBC Urine 0-2 /HPF (0-2); UACC Culture Trigger YES; WBC Urine 21-50 /HPF (0-5)
[2024-09-22 11:05] LABS: Alanine Aminotransferase 24 U/L (0-31); Albumin Level 4.2 g/dL (3.5-5.0); Alkaline Phosphatase 50 U/L (39-117); Anion Gap 11 (12-20); Aspartate Amino Transferase 17 U/L (5-31); Bilirubin Total 0.3 mg/dL (0.0-1.0); Blood Urea Nitrogen 11 mg/dL (9-16); Calcium 9.2 mg/dL (8.4-10.2); Carbon Dioxide 25 mmol/L (22-29); Chloride 109 mmol/L (96-108); Cholesterol 202 mg/dL (<200); Estimated Glomerular Filt Rate > 60; Free T4 (Free Thyroxine) 0.86 ng/dL (0.71-1.85); Glucose Random 100 mg/dL (60-115); HDL Cholesterol 43 mg/dL (>40); LDL Cholesterol Calculated 144 mg/dL (<100); Sodium 141 mmol/L (135-145); Thyroid Stimulating Hormone 1.03 uIU/mL (0.32-4.0); Total Protein 6.7 g/dL (6.5-8.0); Triglycerides 75 mg/dL (<150); Vitamin D 25-OH Total 30.2 ng/mL (>30)
[2024-09-22 11:09] LABS: Folate 12.4 ng/mL (> or = 4.0); Vitamin B12 493 pg/mL (200-900)
== END 2024-09-22 08:53 | disposition home or self-care (01) ==
LOC: HO.HMGCLDS 08:52
PROVIDERS: PCP Internal Medicine; Visit Provider Internal Medicine
DX: K21.9 Gastro-esophageal reflux disease without esophagitis (principal); E78.00 Pure hypercholesterolemia, unspecified; R30.0 Dysuria
CPT/HCPCS: 36415; 80053; 80061; 81001; 82306; 82607; 82746; 84439; 84443; 85025; 87086; 87088; 87186

== ENCOUNTER 2024-10-23 14:47 | Outpatient (AMB) | payer OTHER, SELFPAY ==
--- NOTE | 2024-10-23 14:47 | A.OFFPC_ITS ---
Intake Visit Reasons: Lab results Intake Note: Patient is here to follow up on Lab results. Dishwasher Preparer Required: No Software Team Leader: Not Required per policy Accompanied by: Self / Same As Patient Allergies cetirizine Allergy (Severe, Verified 10/23/24 15:37) Hives fexofenadine (From Amber) Allergy (Severe, Verified 10/23/24 15:37) Hives prednisone Allergy (Severe, Verified 10/23/24 15:37) Hives amoxicillin Allergy (Unknown, Verified 10/23/24 15:37) rash hydroxyzine Allergy (Verified 10/23/24 15:37) hives loratadine Allergy (Verified 10/23/24 15:37) hives Medication List - Last Reconciled 10/23/24 by Janice Ochoa PA-C epinephrine (EpiPen) 0.3 mg (0.3 mL) IM Q4H PRN 1 day hydroxyzine HCl 10 mg PO TID PRN sertraline 75 mg PO DAILY Tobacco use date assessed: 09/16/23 Dental Screening Dental Screen Date: 10/23/24 Did you have a dental visit in the last 12 months?: Yes Did you have a dental problem in the last 6 months where you did not have access to dental care?: No Was dental information given to patient?: Patient has dentist HPI Lab results HPI Details 24-year-old female with past medical his tory of GERD, vitamin-D deficiency, chronic abdominal pain and BPPV last seen 08/2023 presenting via telehealth for lab results. Patient has no accute concerns today. [facility] Medical History Thyroid enlarged Abdominal pain Fatigue Shortness of breath Encounter to establish care Chronic urticaria Vitamin D deficiency Seasonal allergic rhinitis Paroxysmal sinus tachycardia Surgical History History of wisdom tooth extraction Family History Father Drug addiction Mental illness in member of household IHSS (idiopathic hypertrophic subaortic stenosis) Mother Fibromyalgia Mental health disorder Maternal Grandfather Diabetes mellitus Colon cancer Maternal Grandmother Kidney disease Substance use disorder Cardiac arrest Paternal Grandfather IHSS (idiopathic hypertrophic subaortic stenosis) Sister No problems noted. Sister No problems noted. Social History Household Members Other:: Single Housing: House Alcohol intake: current Comment: 2x a month 1-2 glasses Patient Tobacco Use Status: Never used Tobacco e-Cigarette/Vaping Use: Never Used Second Hand Smoke Exposure: No service: No Current occupational status: employed Current occupation: Dentist [employer] Cognitive needs: No Hearing needs: No Vision needs: Yes (Glasses) Questionnaire PHQ-9 Over the last 2 weeks, how often have you been bothered by any of the following problems? 1. Little interest or pleasure in doing things: several days 2. Feeling down, depressed, or hopeless: several days 3. Trouble falling or staying asleep, or sleeping too much: several days 4. Feeling tired or having little energy: more than half the days 5. Poor appetite or overeating: several days 6. Feeling bad about yourself - or that you are a failure or have let yourself or your family down: several days 7. Trouble concentrating on things, such as reading the newspaper or watching television: not at all 8. Moving or speaking so slowly that other people could have noticed. Or the opposite - being so fidgety or restless that you have been moving around a lot more than usual: not at all 9. Thoughts that you would be better off or of hurting yourself in some way: not at all Total score: 7 Depression Screening Interpretation: Positive Depression Screening Follow-up: Existing condition and In treatment Depression Screening Done: Yes 59413 - PHQ-9 Billing: Yes Source: Developed by Drs. Huang Velasco, Milly Chisholm, Seth Watson and colleagues, with an educational mary from [employer]. Thrive Questionnaire Date Thrive assessed: 10/23/24 I am a: Patient What is your living situation today?: I have a steady place to live Within the past 12 months, did the food you bought not last and you didn't have the money to get more?: Never true Within the past 12 months, did you worry whether your food would run out before you got money to buy more?: Never true Do you have trouble paying for medicines?: No Do you have trouble getting transportation to medical appointments?: No Do you have trouble paying your heating and electricity bill?: No Do you have trouble taking care of your child, family member or friend?: No Do you have trouble with day-to-day activities such as bathing, preparing meals, shopping, managing finances, etc.?: No Are you currently unemployed and looking for a job?: No Are you interested in more education?: No Please select the resources that you would like help with: None Currently or been in a relationship where the following occur: No concerns repor carlito THRIVE Score: 0 AUDIT C Alcohol Use Questionnaire (AUDIT-C) 2. How many drinks containing alcohol do you have on a typical day when you are drinking?: 1 or 2 3. How often do you have six or more drinks on one occasion?: Less than monthly Total Score: 1 CHANELLE-7 AMB Questionnaire CHANELLE-7 Date CHANELLE - 7 assessed: 10/23/24 Feeling nervous, anxious, or on edge: 2 = More than half the days Not being able to stop or control worryin = More than half the days Worrying too much about different things: 2 = More than half the days Trouble relaxin = Several days Being so restless that it is hard to sit still: 0 = Not at all Becoming easily annoyed or irritable: 1 = Several days Feeling afraid as if something awful might happen: 2 = More than half the days Total CHANELLE-7 score (0-4 normal; 5-9 mild; 10-14 moderate; 15-21 severe): 10 Source: Developed by Drs. Huang Velasco, Milly Chisholm, Seth Watson and colleagues, with an educational mary from [employer]. CHANELLE-7 Assessment Billing CHANELLE-7 Assessment Tool: CHANELLE-7 Assessment 98534 Review of Systems Const Denies body aches, Denies chills, Denies fever(s), Denies headache(s) and Denies poor appetite Eyes Reports no additional complaints ENT Denies dysphagia, Denies dizziness, Denies headache(s) and Denies odynophagia Card Denies chest pain, Denies edema, Denies lightheadedness and Denies dyspnea Resp Denies cough and Denies dyspnea GI Denies abdominal pain, Denies constipation, Denies dysphagia, Denies diarrhea, Denies nausea, Denies odynophagia and Denies vomiting Reports no additional complaints Musc Reports no additional complaints and Denies abnormal gait Skin/Breast Reports system reviewed and no additional complaints, except as documented Neuro Denies abnormal gait, Denies dizziness and Denies headache(s) Psych Reports no additional complaints Physical exam (Primary Care) Vital Signs: Vital signs and physical exam not performed due to nature of telehealth visit. Tobacco/Smoking Status: Tobacco use Status Tobacco use date assessed 09/16/23 10/23/24 14:53 Patient Tobacco Use Status Never used Tobacco 10/23/24 14:53 e-Cigarette/Vaping Use Never Used 10/23/24 14:53 PHQ-9: PHQ-9 Score PHQ-9: Total score 7 10/23/24 14:53 Depression Screening Interpretation: Positive Depression Screening Follow-up: Existing condition and In treatment Thrive Assessment: Date of Thrive Assessment Date Thrive assessed 10/23/24 10/23/24 14:53 Currently or been in a relationship where the following occur: No concerns reported Telehealth Telehealth Telehealth Platform: Telephone Location of provider rendering services: practice address Location of patient: address on file Patient Identification confirmed using: Name, : Yes Telehealth method: voice only Patient verbally consented to treatment: Yes Patient verbally consented to billing insurance company: Yes Patient informed of any privacy concerns related to visit: Yes Coding Level of Care Code Est Pt Level 3 (32888) Diagnoses Asymptomatic bacteriuria R82.71 Obesity (BMI 30.0-34.9) E66.9 Hypercholesterolemia E78.00 Additional Codes PHQ-9 - 80102 - PHQ-9 Billing: Yes ([id number]) CHANELLE-7 Assessment Billing - CHANELLE-7 Assessment Tool: CHANELLE-7 Assessment 16622 ([id number]) Assessment & Plan Assessment & Plan (1) Asymptomatic bacteriuria: Code(s): R82.71 - Bacteriuria Category: Medical Plan: Patient having urinalysis suspicious for UTI and urine culture showing growth of E coli. At this time she would like to continue to monitor her symptoms and would not like an antibiotic. (2) Obesity (BMI 30.0-34.9): Code(s): E66.9 - Obesity, unspecified Category: Medical Plan: Healthy diet and regular exercise is encouraged. (3) Hypercholesterolemia: Code(s): E78.00 - Pure hypercholesterolemia, unspecified Category: Medical Plan: Avoid foods that are high in cholesterol such as red meat, fried foods, eggs and baked goods. Triglyceride goal of less than 150 and LDL goal of less than 130. Plan to repeat labs in 2 months before next visit. Plan This note was constructed using voice recognition software. While every effort has been made to ensure accuracy and certified medical coder, still areas may have been included sometimes these areas may affect the content or meeting of the given symptoms. Total time spent caring for the patient today was 15 minutes. This includes time spent before the visit reviewing the chart, time spent during the visit, and time spent after the visit and documentation. Orders: Orders Lipid Panel 2 Months E78.00 - Pure hypercholesterolemia, unspecified
--- OUTSIDE RECORDS SUMMARY | 2024-10-23 15:03 | XMS_ITS | Encounter Summary ---
Author Organization [facility] Address [address] [place] [address] Phone Care Team Providers Care Emergency Specialist Name Role Phone Unavailable Primary Care Provider Unavailabl e Encounter Details Date Type Department Care Team (Late st Contact Info) Description 09/16/2009 Documentation [facility] [place] Family Medicine [place] [address] Family Medicine, [place] [address] Social History Tobacco Use Types [...]
== END 2024-10-23 15:41 | disposition home or self-care (01) ==
LOC: HO.HMCH 14:47
PROVIDERS: PCP Internal Medicine
DX: R82.71 Bacteriuria (principal); E66.9 Obesity, unspecified; E78.00 Pure hypercholesterolemia, unspecified

== ENCOUNTER → 2024-10-23 14:47 | Outpatient (BNVA) | payer OTHER, SELFPAY | PROVIDERS: PCP Internal Medicine | DX: K21.9 Gastro-esophageal reflux disease without esophagitis (principal); E55.9 Vitamin D deficiency, unspecified; R10.9 Unspecified abdominal pain; G89.29 Other chronic pain; R82.71 Bacteriuria; E66.9 Obesity, unspecified; E78.00 Pure hypercholesterolemia, unspecified | CPT/HCPCS: 96127 ==

== ENCOUNTER 2024-12-12 10:40 | Outpatient (REF) | payer OTHER, SELFPAY ==
--- OUTSIDE RECORDS SUMMARY | 2024-12-12 10:43 | XMS_ITS | Encounter Summary ---
Author Organization [facility] Address [address] [place] [phone] Phone Care Team Providers Care Marketing Rotation Associate Name Role Phone Unavailable Primary Care Provider Unavailabl e Encounter Details Date Type Department Care Team (Late st Contact Info) Description 09/16/2009 Documentation [facility] [place] Family Medicine [facility] [place] [address] Family Medicine, Physician [facility] [place] [address] Social History Tobacco Use Types [...]
--- OUTSIDE RECORDS SUMMARY | 2024-12-12 10:43 | XMS_ITS | Clinical Summary ---
Author Organization [facility] Address [address] [facility] [address] [place] [phone] Phone Care Team Providers Care Content Analyst Name Role Phone Juan Jose Young MD Primary Care Provider [phone] Allergies Active Allergy Reactions Criticality Noted Date Comments Amoxicillin Hives,Rash Low 01/23/2018 Medications ZOLOFT 25 mg tablet 4 Active cloNIDine HCL (CATAPRES) 0.1 MG tablet Take 0.1 mg by mouth 2 (two) times a day. 4 Active clotrimazole-be tamethasone (LOTRISONE) cream Apply topically daily as needed (irritation). Apply a thin film daily PRN irritation 30 g 5 Active Active Problems Problem Noted Date Diagnosed Date Dysuria 04/03/2024 Assessment & Plan (04/03/2024 5:15 PM EST): UA with reflex culture reviewed Will follow up and treat as indicated Family History Relation Status Comments Mother Alive Sister 1 Alive Sister 2 Alive Social History Tobacco Use Types Packs/Day Years Used Date Smoking Tobacco: Never Smokeless Tobacco: Never Tobacco Cessation:Counseling Given: Not Answered Alcohol Use Standard Drinks/Week Comments Yes 0 (1 standard drink = 0.6 oz pur e alcohol) Education Answer Date Recorded Are you interested in more education? Not on elliott e 08/25/2022 Are you concerned about learning? Not on file 08/25/2022 No 08/25/2022 No 08/25/2022 Digital Access Answer Date Recorded No 09/25/2022 No 09/25/2022 Reliable internet access at home? Not on file 09/25/2022 Device with a working camera? Not on file Comments No Sex and Gender Information Value Date Recorded Sex Assigned at Not on file Legal Sex Female 1:37 PM EST Gender Identity Not on file Sexual Orientation Not on file Last Filed Vital Signs Vital Sign Reading Time Taken Comments Blood Pressure 112/66 06/05/2024 1:25 PM EST Pulse - - Temperature - - Respiratory Rate - - Oxygen Saturation - - Inhaled Oxygen Concentration - - Weight 96.6 kg (213 lb) 06/05/2024 1:25 PM EST Height - - Body Mass Index - - Plan of Treatment Health Maintenance Due Date Last Done Comments DEPRESSION SCREENING 2012 HPV VACCINES (1 - 3-dose series) 10/05/2015 HEPATITIS A VACCINES (2 of 2 - 2-dose series) 03/18/2016 09/16/2015 CHLAMYDIA SCREENING 2016 HEPATITIS C SCREENING 2018 HIV ONE-TIME SCREENING (18-6 5 YEARS) 2018 PAP SMEAR 2021 COVID-19 VACCINE (1 - 2023-2 5 season) 2023 SMOKING Hx and SMOKELESS TOBACCO SCREENING 04/03/2025 04/03/2024 Adult Td,Tdap Booster 09/15/2033 09/16/2023 , 11/16/2011 MENINGOCOCCAL VACCINES (ACWY) Completed 01/23/2018 HIB VACCINES Aged Out No longer eligi ble based on patient's age to complete this topic MENINGOCOCCAL VACCINES (B) Aged Out N o longer eligible based on patient's age to complete this topic PNEUMOCOCCAL VACCINES (0-49 years) Aged Out No longer eligible b ased on patient's age to complete this topic Medical Devices Not on file [place] [address] [place] [address] [place], [place] [address] [facility] [address] [place] [address] [place] [address] [place] [place] [address] HMO Care Teams Content Analyst Relationship Specialty Start Date End Date Juan Jose Young MD [address] [place] [address] [address] [place] [phone] PCP - General Internal Medicine 03/04/24 Additional Source Comments The information contained in this document represents components of the legal health record. It is not the complete legal health record.[facility]
[2024-12-12 14:07] LABS: MANUAL DIFF FLAG NO
[2024-12-12 14:22] LABS: Hematocrit 39.2 % (37.0-47.0); Hemoglobin 13.7 g/dl (12.0-16.0); Imm Gran Abs Auto 0.02 X10*3/uL (0.00-0.03); Imm Gran Pct Auto 0.3 % (0.0-0.4); Lymphocytes Absolute Auto 1.7 X10*3/uL (1.2-4.9); Mean Corpuscular HGB Conc 34.9 g/dl (31.0-35.0); Mean Corpuscular Hemoglobin 30.1 pg (27.0-33.0); Mean Corpuscular Volume 86.2 fL (80.0-98.0); NRBC Abs Auto 0.000 X10*3/uL (0.0-0.012); NRBC Pct Auto 0.0 /100WBC (0.0-0.2); Platelet Count 219 X10*3/uL (160-400); Red Blood Count 4.55 X10*6/uL (4.20-5.50); White Blood Count 6.5 X10*3/uL (4.8-10.8)
[2024-12-12 14:40] LABS: Alanine Aminotransferase 25 U/L (0-31); Albumin Level 4.0 g/dL (3.5-5.0); Alkaline Phosphatase 54 U/L (39-117); Anion Gap 13 (12-20); Aspartate Amino Transferase 28 U/L (5-31); Blood Urea Nitrogen 8 mg/dL (9-16); Calcium 8.9 mg/dL (8.4-10.2); Carbon Dioxide 24 mmol/L (22-29); Chloride 107 mmol/L (96-108); Cholesterol 202 mg/dL (<200); Estimated Glomerular Filt Rate > 60; HDL Cholesterol 36 mg/dL (>40); Magnesium 2.2 mg/dL (1.6-2.6); Potassium 4.1 mmol/L (3.3-5.1); Sodium 140 mmol/L (135-145); Total Protein 6.5 g/dL (6.5-8.0); Triglycerides 80 mg/dL (<150)
[2024-12-12 14:54] LABS: Thyroid Stimulating Hormone 0.77 uIU/mL (0.32-4.0)
[2024-12-12 15:08] LABS: Folate 14.6 ng/mL (> or = 4.0)
== END 2024-12-12 10:41 | disposition home or self-care (01) ==
LOC: HO.HMGCLDS 10:40
PROVIDERS: PCP Internal Medicine; Referring Provider Nurse Practitioner Psychiatric/Mental Health
DX: F42.2 Mixed obsessional thoughts and acts (principal); F41.1 Generalized anxiety disorder; F43.23 Adjustment disorder with mixed anxiety and depressed mood
CPT/HCPCS: 36415; 80053; 80061; 82746; 83735; 84443; 85025

== ENCOUNTER 2024-12-18 14:44 | Outpatient (AMB) | payer OTHER, SELFPAY ==
--- OUTSIDE RECORDS SUMMARY | 2024-12-18 14:48 | XMS_ITS | Encounter Summary ---
Author Organization [facility] Address [address] [place] [address] Phone Care Team Providers Care Nuclear Powerplant Mechanic Helper Name Role Phone Unavailable Primary Care Provider Unavailabl e Encounter Details Date Type Department Care Team (Late st Contact Info) Description 09/16/2009 Documentation [facility] [place] Family Medicine [facility] [place] [address] Family Medicine, Physician [facility] [place] [address] Social History Tobacco Use Types [...]
--- OUTSIDE RECORDS SUMMARY | 2024-12-18 14:48 | XMS_ITS | Clinical Summary ---
Author Organization [facility] Address [address] [facility] [address] [place] [phone] Phone Care Team Providers Care Type Caster Name Role Phone Juan Jose Young MD Primary Care Provider [phone] Allergies Active Allergy Reactions Criticality Noted Date [...] topic Medical Devices Not on file [place] [address] [address] [place], [place] [address] [facility] [address] [place] [place] [address] [place] [address] [address] [place] [address] [address] [place] [address] HMO Care Teams Type Caster Relationship Specialty Start Date End Date Juan Jose Young MD [address] [place] [address] [address] [place] [phone] PCP - General Internal Medicine 03/04/24 Additional Source Comments The information contained in this document represents components of the legal health record. It is not the complete legal health record.[facility]
--- NOTE | 2024-12-18 15:13 | MHC.PC.OV ---
Vital Signs 12/18/24 15:14 Height 5 ft 8 in Weight 212 lb BMI 32.2 BP 122/58 L Blood Pressure Location Lt brachial Position Sitting Pulse 69 Pulse Oximetry (%) 100 Oxygen Delivery Method Room Air Intake Visit Reasons: CPE Director Of Knowledge Management Required: No Accompanied by: Self / Same As Patient Allergies cetirizine Allergy (Severe, Verified 12/18/24 15:49) Hives fexofenadine (From Amber) Allergy (Severe, Verified 12/18/24 15:49) Hives prednisone Allergy (Severe, Verified 12/18/24 15:49) Hives amoxicillin Allergy (Unknown, Verified 12/18/24 15:49) rash hydroxyzine Allergy (Verified 12/18/24 15:49) hives loratadine Allergy (Verified 12/18/24 15:49) hives Medication List - Last Reconciled 12/18/24 by Janice Ochoa PA-C epinephrine (EpiPen) 0.3 mg (0.3 mL) IM Q4H PRN 1 day hydroxyzine HCl 10 mg PO TID PRN sertraline 75 mg PO DAILY Tobacco use date assessed: 12/18/24 Dental Screening Dental Screen Date: 12/18/24 Did you have a dental visit in the last 12 months?: Yes Did you have a dental problem in the last 6 months where you did not have access to dental care?: No Was dental information given to patient?: Patient has dentist HPI CPE HPI Details 24-year-old female with past medical history of GERD, vitamin-D deficiency, chronic abdominal pain and BPPV last seen 09/2024 coming in for annual exam. Presenting with an annual wellness visit. The patient has a history of elevated cholesterol levels, which have been increasing over the past year despite a healthy diet and exercise routine. There is a family history of hypercholesterolemia, which may contribute to her condition. The patient reports a weight gain of 4 pounds since last year, despite efforts to maintain a healthy diet and exercise regimen. She has a history of being overweight since childhood and has attempted various weight loss strategies, including intermittent fasting and exercise, with limited success. The patient reports feeling unmotivated and tired, with a lack of interest in activities she previously enjoyed. She is currently on sertraline and has an upcoming appointment with her psychiatrist to discuss potential medication adjustments. pap smears: UTD [employer] vaccines: [facility] Medical History Thyroid enlarged Abdominal pain Fatigue Shortness of breath Encounter to establish care Chronic urticaria Vitamin D deficiency Seasonal allergic rhinitis Paroxysmal sinus tachycardia Surgical History History of wisdom tooth extraction Family History Father Drug addiction Mental illness in member of household IHSS (idiopathic hypertrophic subaortic stenosis) Mother Fibromyalgia Mental health disorder Maternal Grandfather Diabetes mellitus Colon cancer Maternal Grandmother Kidney disease Substance use disorder Cardiac arrest Paternal Grandfather IHSS (idiopathic hypertrophic subaortic stenosis) Sister No problems noted. Sister No problems noted. Social History Household Members Other:: Single Housing: House Alcohol intake: current Comment: 2x a month 1-2 glasses Patient Tobacco Use Status: Never used Tobacco e-Cigarette/Vaping Use: Never Used Second Hand Smoke Exposure: No service: No Current occupational status: employed Current occupation: Dentist [employer] Cognitive needs: No Hearing needs: No Vision needs: Yes (Glasses) Questionnaire PHQ-9 Over the last 2 weeks, how often have you been bothered by any of the following problems? 1. Little interest or pleasure in doing things: several days 2. Feeling down, depressed, or hopeless: several days 3. Trouble falling or staying asleep, or sleeping too much: several days 4. Feeling tired or having little energy: more than half the days 5. Poor appetite or overeating: several days 6. Feeling bad about yourself - or that you are a failure or have let yourself or your family down: several days 7. Trouble concentrating on things, such as reading the newspaper or watching television: several days 8. Moving or speaking so slowly that other people could have noticed. Or the opposite - being so fidgety or restless that you have been moving around a lot more than usual: not at all 9. Thoughts that you would be better off or of hurting yourself in some way: not at all Total score: 8 Source: Developed by Drs. Huang Velasco, Milly Chisholm, Seth Watson and colleagues, with an educational mary from [employer]. Thrive Questionnaire Date Thrive assessed: 10/23/24 I am a: Patient What is your living situation today?: I have a steady place to live Within the past 12 months, did the food you bought not last and you didn't have the money to get more?: Never true Within the past 12 months, did you worry whether your food would run out before you got money to buy more?: Never true Do you have trouble paying for medicines?: No Do you have trouble getting transportation to medical appointments?: No Do you have trouble paying your heating and electricity bill?: No Do you have trouble taking care of your child, family member or friend?: No Do you have trouble with day-to-day activities such as bathing, preparing meals, shopping, managing finances, etc.?: No Are you currently unemployed and looking for a job?: No Are you interested in more education?: No Please select the resources that you would like help with: None Currently or been in a relationship where the following occur: No concerns reported THRIVE Score: 0 AUDIT C Alcohol Use Questionnaire (AUDIT-C) 1. How often do you have a drink containing alcohol?: Monthly or less Total Score: 1 CHANELLE-7 AMB Questionnaire CHANELLE-7 Date CHANELLE - 7 assessed: 10/23/24 Feeling nervous, anxious, or on edge: 2 = More than half the days Not being able to stop or control worryin = Several days Worrying too much about different things: 1 = Several days Trouble relaxin = Several days Being so restless that it is hard to sit still: 0 = Not at all Becoming easily annoyed or irritable: 2 = More than half the days Feeling afraid as if something awful might happen: 1 = Several days Total CHANELLE-7 score (0-4 normal; 5-9 mild; 10-14 moderate; 15-21 severe): 8 Source: Developed by Drs. Huang Velasco, Seth Kaufman and colleagues, with an educational mary from [employer]. Review of Systems Const Denies body aches, Denies fatigue, Denies fever(s), Denies frequent falls, Denies headache(s) and Denies weakness Eyes Reports no additional complaints and Denies change in vision ENT Denies dysphagia, Denies dizziness, Denies facial pain, Denies headache(s), Denies nasal congestion and Denies odynophagia Card Denies chest pain, Denies syncope, Denies irregular heart rhythm, Denies leg edema, Denies lightheadedness and Denies dyspnea Resp Denies cough and Denies dyspnea GI Denies constipation, Denies dysphagia, Denies dyspepsia, Denies diarrhea, Denies nausea, Denies odynophagia and Denies vomiting Denies urinary frequency, Denies dysuria, Denies urinary hesitancy and Denies urinary urgency Musc Denies back pain and Denies myalgias Skin/Breast Reports system reviewed and no additional complaints, except as documented Neuro Denies dizziness, Denies syncope, Denies frequent falls, Denies headache(s) and Denies weakness Psych Reports no additional complaints Endo Denies fatigue Physical exam (Primary Care) Vital Signs: Last Vital Signs Pulse 69 12/18/24 15:14 BP 122/58 L 12/18/24 15:14 Pulse Ox 100 12/18/24 15:14 Oxygen Delivery Method Room Air 12/18/24 15:14 BMI result Body Mass Index 32.2 Tobacco/Smoking Status: Tobacco use Status Tobacco use date assessed 12/18/24 12/18/24 15:18 Patient Tobacco Use Status Never used Tobacco 12/18/24 15:18 e-Cigarette/Vaping Use Never Used 12/18/24 15:18 PHQ-9: PHQ-9 Score PHQ-9: Total score 8 12/18/24 15:44 Thrive Assessment: Date of Thrive Assessment Date Thrive assessed 10/23/24 12/18/24 15:18 Currently or been in a relationship where the following occur: No concerns reported Const General: cooperative, healthy appearing, comfortable and no acute distress Orientation/consciousness: patient oriented x3 HENMT Head: Yes normocephalic Ears: hearing grossly normal bilaterally, external ears normal, TM's normal bilaterally and EAC's normal General nose exam: Normal external nose present Face and sinus: Yes normal facial exam and Yes sinuses nontender Mouth: Normal oral and palatal mucosa present and tongue normal Throat: Yes posterior oropharynx normal Eyes General: appearance normal, both eyes and all related structures Conjunctivae: conjunctivae normal Pupils: Equal, round and reactive pupils present EOM: EOMs intact bilaterally and No Nystagmus present Neck Neck: Yes normal visual inspection, Yes full ROM and Yes no lymphadenopathy Chest Chest palpation & inspection: normal inspection of the chest Resp Effort & Inspection: normal respiratory effort Auscultation: clear to auscultation bilaterally, no crackles, no rales, no rhonchi, no wheezes and breath sounds present Cardio Rate: regular rate Rhythm: regular rhythm Peripheral pulses: radial pulses present and dorsalis pedis present GI Inspection: Yes normal to inspection and No Abdominal wall edema Palpation (GI): Soft to palpation, not firm and nontender Auscultation: normal bowel sounds Rectal Exam - Female: deferred General: Yes no CVA tenderness Back/Spine/Pelvis Back: no CVA tenderness Skin General skin exam: no rashes or lesions noted Neuro General: patient oriented x3 Cranial nerves: Yes Equal, round and reactive pupils present, Yes Midline tongue present, Yes Ability to bilaterally elevate shoulders present and No Nystagmus present Gait exam (Neuro): Normal gait present Extrem General: Yes normal to inspection, Yes full ROM, No no pedal edema and No edema Psych Speech and movement: Normal speech and movement present Affect: normal affect Insight: Good insight present (Psych) Judgement: Good judgement present (Psych) Coding Level of Care Code Est Pt Prev Care [id number]) Diagnoses Annual physical exam Z00.00 Obesity (BMI 30.0-34.9) E66.9 Hypercholesterolemia E78.00 Vitamin D deficiency E55.9 GERD (gastroesophageal reflux disease) K21.9 Depression F32.A Assessment & Plan Assessment & Plan (1) Annual physical exam: Code(s): Z00.00 - Encounter for general adult medical examination without abnormal findings Category: Medical Plan: Patient is up-to-date on all recommended routine screenings and vaccinations for her age. She is up-to-date on blood work which has been reviewed with our today. Plan to follow up in 3 months for weight check or sooner as needed. Healthy diet and regular exercise is encouraged. (2) Obesity (BMI 30.0-34.9): Code(s): E66.9 - Obesity, unspecified Category: Medical Plan: Healthy diet and regular exercise is encouraged. Discussed medical management. Patient was counseled today on the risks and benefits of GLP-1 injections as well as the dosing schedule. She has no family history or personal history of thyroid disease and no gallbladder disease. Discussed with the patient the potential GI side effects of this medication. Plan to have repeat blood work after one month of therapy to monitor kidney and liver function before increasing the dose of this medication. Follow up in 2 months for a weight check. (3) Hypercholesterolemia: Code(s): E78.00 - Pure hypercholesterolemia, unspecified Category: Medical Plan: Avoid foods that are high in cholesterol such as red meat, fried foods, eggs and baked goods. Triglyceride goal of less than 150 and LDL goal of less than 130. LDL still elevated on last blood work discussed dietary and lifestyle modification. (4) Vitamin D deficiency: Code(s): E55.9 - Vitamin D deficiency, unspecified Category: Medical Plan: Blood work up to date not currently on supplement. (5) GERD (gastroesophageal reflux disease): Code(s): K21.9 - Gastro-esophageal reflux disease without esophagitis Category: Medical Plan: Avoid trigger foods such as citrus, tomato products, soda, caffeine, spicy foods and other foods that may be irritating to your stomach. Avoid laying flat 3-4 hours after eating and elevate the head of the bed 30 degrees to prevent acid from moving into the esophagus. (6) Depression: Code(s): F32.A - Depression, unspecified Category: Medical Plan: Patient is endorsing depression and is currently on sertraline 75 mg by her psychiatrist. She will discussed possible increase at next visit. Plan The management plan for hypercholesterolemia involves dietary changes to limit foods high in cholesterol and consideration of fish oil supplements. Regular cholesterol monitoring is advised to track progress. For weight management, the patient is encouraged to establish a consistent exercise regimen and may benefit from consulting a overseer kos[employer] kitchen. Pharmacological options such as phentermine or Ozempic were discussed, with attention to side effects and insurance coverage. In addressing depression, the patient is to follow up with her psychiatrist to consider medication adjustments, focusing on improving motivation and energy levels to aid in weight management and overall health. This note was constructed using voice recognition software. While every effort has been made to ensure accuracy and tower hand, still areas may have been included sometimes these areas may affect the content or meeting of the given symptoms. Total time spent caring for the patient today was 30 minutes. This includes time spent before the visit reviewing the chart, time spent during the visit, and time spent after the visit and documentation. Patient was informed and verbally consented to the use of an ambient scribe for clinic note documentation during this visit. Medications: New tirzepatide (weight loss) (Zepbound) for 4 weeks 2.5 mg (0.5 mL) subcut QWEEK 2 mL 0RF
[2024-12-18 15:14] VITALS: BP 122/58; PULSE 69; O2SAT 100; BMI 32.2
== END 2024-12-18 16:23 | disposition home or self-care (01) ==
LOC: HO.HMCH 14:45
PROVIDERS: PCP Internal Medicine
DX: Z00.00 Encounter for general adult medical examination without abnormal findings (principal); E66.9 Obesity, unspecified; Z68.32 Body mass index [BMI] 32.0-32.9, adult; E78.00 Pure hypercholesterolemia, unspecified; E55.9 Vitamin D deficiency, unspecified; K21.9 Gastro-esophageal reflux disease without esophagitis; F32.A Depression, unspecified